=== PATIENT | male | born 1965 | race Caucasian/White ===

== ENCOUNTER 2017-02-02 23:38 | Emergency (ER) | payer BC, OTHER ==
[~2017-02-02] VITALS: Wt 64.0 kg
[~2017-02-02 23:38] MED LIST: ALPR1TAB7; CLON0.12; FLUOXETINA; GABA100C14; TRAM50TA2; VIC
--- NOTE | 2017-02-03 00:15 | ERA ---
ER Documentation Chief Complaint Date/Time DATE: 02/03/17 TIME: 00:15 Chief Complaint Left sided weakness HPI The patient is a 51-year-old male, presenting to the ER because of left facial and right-sided numbness and weakness that began about 10 PM. He had similar symptoms 3 days ago that lasted for approximately 2 hours and went away while he was waiting to the hospital emergency department. He denies headache, dizziness, dysarthria, dysphonia, neck pain, chest pain, abdominal pain, vomiting, dysuria, diarrhea. He smokes, denies drinking or using any illicit drug He was discharged from the hospital a few days ago and was treated for fungal sepsis Past medical history: Chronic low back pain Past surgical history: Right knee replacement ROS All systems reviewed and are negative except as per history of present illness. Medications Home Meds Reported Medications Trazodone Hcl* (Desyrel*) 100 Mg Tab, 100 MG PO QHS, #30 TAB 02/03/17 Tramadol Hcl* (Ultram*) 50 Mg Tablet, 50 MG PO Q6H Y for PAIN, TAB 02/03/17 Tiotropium [place]* (Spiriva*) 18 Mcg Cap.w.dev, 1 CAP INHALATION DAILY, #30 CAP 02/03/17 Prazosin Hcl* (Minipress*) 2 Mg Capsule, 2 MG PO HS, CAP 02/03/17 Hydrocodone/Acetaminophen ([place] 10-325 Tablet) 1 Each Tablet, 1 EACH PO Q4 for PAIN, TAB 02/03/17 Gabapentin* (Gabapentin*) 600 Mg Tablet, 600 MG PO WITH MEALS BEDTIME, #60 TAB TAKE 600MG QAM ; NOON; QPM AND 1200MG AT BEDTIME. 02/03/17 Fluoxetine Hcl* (Fluoxetine Hcl*) 20 Mg Capsule, 20 MG PO QAM, CAP 02/03/17 Docusate Sodium* (Docusate Sodium*) 100 Mg Capsule, 100 MG PO BID, #60 CAP 02/03/17 Atorvastatin Calcium* (Atorvastatin Calcium*) 20 Mg Tablet, 20 MG PO QHS, #30 TAB 02/03/17 Alprazolam* (Xanax*) 2 Mg Tablet, 2 MG PO QPM Y for ANXIETY, TAB 02/03/17 Albuterol Sulfate* (Proair HFA*) 8.5 Gm Hfa.aer.ad, 2 PUFF INH Q6, #1 INHALER 02/03/17 Discontinued Reported Medications Tramadol HCl (Tramadol HCl) 50 Mg Tablet 01/31/11 Clonazepam (Klonopin) 0.125 Mg/Tab Tab.rapdis 01/28/11 Alprazolam* (Alprazolam*) 1 Mg Tablet 01/28/11 [Fluoxetina] No Conflict Check 01/28/11 Gabapentin* (Gabapentin*) 100 Mg Capsule 01/28/11 Acetaminophen/Hydrocodone (Vicodin) 1 Tab Tab 01/28/11 Allergies Allergies: Coded Allergies: No Known Allergies (Unverified Allergy, Unknown, 02/03/17) PMhx/Soc History of Surgery: Yes (BACK FUSION 01/26/2011) Anesthesia Reaction: No Hx Neurological Disorder: No Hx Respiratory Disorders: No Hx Cardiac Disorders: No Hx Psychiatric Problems: No Hx Miscellaneous Medical Probl: No Hx Alcohol Use: No Hx Substance Use: No Hx Tobacco Use: Yes (DAILY) Physical Exam Vitals Vital Signs Date Time Temp Pulse Resp B/P Pulse Ox O2 Delivery O2 Flow Rate FiO2 02/03/17 04:20 98.2 69 18 118/65 100 Nasal Cannula 2.0 02/03/17 02:42 66 17 101/73 100 Nasal Cannula 2.0 02/03/17 01:30 60 16 95/75 100 Nasal Cannula 2.0 02/03/17 01:26 Nasal Cannula 2 02/03/17 00:22 98.6 63 18 105/76 99 Room Air 02/02/17 23:57 98.2 82 20 107/74 100 Physical Exam Const: No acute distress. Head: Atraumatic. Eyes: Normal Conjunctiva. ENT: Normal External Ears, Nose and Mouth. Neck: Full range of motion. No meningismus. Resp: Clear to auscultation bilaterally. Cardio: Regular rate and rhythm. Abd: Soft, non distended, normal bowel sounds, non tender. Skin: No petechiae or rashes. Back: No midline or flank tenderness. Ext: No cyanosis, or edema. Neur: Awake and alert. Right upper and right lower extremity are 5/5, left upper and left lower extremity are 4+ Psych: Normal Mood and Affect. Result Diagram: 02/03/17 0015 02/03/17 0015 Results 24 hrs Laboratory Tests Test 02/03/17 00:15 White Blood Count 11.710^3/ul Red Blood Count 3.7710^6/ul Hemoglobin 10.2g/dl Hematocrit 33.2% Mean Corpuscular Volume 88.1fl Mean Corpuscular Hemoglobin 27.1pg Mean Corpuscular Hemoglobin Concent 30.7g/dl Red Cell Distribution Width 14.2% Platelet Count 49807^3/UL Mean Platelet Volume 12.2fl Neutrophils % 64.2% Lymphocytes % 26.2% Monocytes % 5.9% Eosinophils % 2.8% Basophils % 0.3% Nucleated Red Blood Cells % 0.0/100WBC Neutrophils # 7.510^3/ul Lymphocytes # 3.110^3/ul Monocytes # 0.710^3/ul Eosinophils # 0.310^3/ul Basophils # 0.010^3/ul Nucleated Red Blood Cells # 0.010^3/ul Prothrombin Time 13.2Sec Prothrombin Time Ratio 1.0 INR International Normalized Ratio 1.00 Activated Partial Thromboplast Time 24.0Sec Sodium Level 140mmol/L Potassium Level 4.0mmol/L Chloride Level 106mmol/L Carbon Dioxide Level 23mmol/L Anion Gap 15 Blood Urea Nitrogen 12mg/dl Creatinine 0.90mg/dl Glucose Level 85mg/dl Hemoglobin A1c 5.0% Calcium Level 9.6mg/dl Troponin I < 0.012ng/ml Current Medications Medications (Trade) Dose Ordered Sig/Jaylin Route PRN Reason Start Time Stop Time Status Last Admin Dose Admin Aspirin (Aspirin) 325 mg ONCE ONCE PO 02/03/17 02:00 02/03/17 02:01 DC 02/03/17 01:48 Acetaminophen/ Hydrocodone Bitart ([place] (10/325)) 1 tab ONCE ONCE PO 02/03/17 02:30 02/03/17 02:31 DC 02/03/17 02:44 Procedures/[place] [id number] Radiology Main Line: [phone] DIAGNOSTIC IMAGING REPORT Patient: HANH KENDALL : 1965 Age: 51 Sex: M MR #: [id number] DOS: 02/03/17 0109 Ordering MD: BEATRIZ CASTELAN MD Location: E/R Room/Bed: PROCEDURE: CHEST - 1 VIEW CLINICAL INDICATION: 51-year-old male with change in mental status. TECHNIQUE: A single frontal AP upright portable view of the chest was performed. The images were reviewed on a PACS workstation. COMPARISON: None. FINDINGS: The cardiomediastinal silhouette is within normal limits. There is a shallow inspiration. There is minimal left basilar subsegmental atelectasis. There is no evidence for an infiltrate. There is no evidence for congestive heart failure. There is no evidence for pneumothorax. The osseous structures are intact. IMPRESSION: Shallow inspiration with minimal left basilar subsegmental atelectasis. .Daniel Montalvo MD, Date Time Electronically viewed and signed by .Daniel Montalvo MD, MD on 02/03/2017 01:53 .M/ CC: BEATRIZ CASTELAN MD [place] [id number] Radiology Main Line: [phone] DIAGNOSTIC IMAGING REPORT Patient: HANH KENDALL : 1965 Age: 51 Sex: M MR #: [id number] DOS: 02/03/17 0109 Ordering MD: BEATRIZ CASTELAN MD Location: E/R Room/Bed: PROCEDURE: CT Brain without contrast. CLINICAL INDICATION: Code stroke TECHNIQUE: A CT of the brain was performed utilizing axial imaging from the skull base through the vertex without IV contrast. Multiplanar reformatted images were made. Images were reviewed on a PACS workstation. The CTDIvol is 45.01 mGy and the DLP is 720.23 mGycm. One or more the following dose reduction techniques were utilized: Automated exposure control, adjustment of the mA and / or kV according to patient's size, or use of iterative reconstruction technique. COMPARISON: None FINDINGS: There is no intracranial hemorrhage, mass effect, or midline shift. No extra- axial fluid collection is seen. The ventricles and sulci are normal in size and configuration. The density of the brain is normal, and the richardson white matter differentiation appears well-preserved. The visualized paranasal sinuses and osseous structures are grossly unremarkable. IMPRESSION: No acute bleed. No acute major territory infarct seen. Critical result discussed with Dr. Castelan at 01:29 a.m. on 02/03/2017. RPTAT: HJES .Wei Jean MD, MD Date Time Electronically viewed and signed by .Wei Jean MD, MD on 02/03/2017 01:31 .S/ CC: BEATRIZ CASTELAN MD EKG: Read by emergency physician Rate/Rhythm: Normal Sinus Rhythm 68 beats/min QRS, ST, T-waves: No ST elevation, no T inversion Impression: Normal EKG MEDICAL MAKING DECISION: The patient is a 51-year-old male, presenting with acute left-sided weakness, consistent with acute stroke. Code stroke was activated immediately Consultation: I discussed the present with the stroke neurologist Dr Moise before and after he evaluated the patient at 1:30 am, who did not recommend TPA because the patient's symptoms are improving rapidly. The differential diagnoses considered include but are not limited to TIA, impending CVA, anxiety attack, panic attack, cervical radiculopathy, lumbar radiculopathy Departure Diagnosis: Primary Impression: Acute ischemic stroke Additional Impression: Anemia Condition: Stable Comments I discussed the findings with the patient. I discussed the patient with his physician Dr. Luis who was made aware of the lab, the treatment, the patient condition. The patient is admitted to telemetry at 3:40 AM The patient however changed his mind and signed out AGAINST MEDICAL ADVICE The patient signed out AGAINST MEDICAL ADVICE. Risks, benefits, alternatives were explained to the patient. Risks include but not limited to and permanent disability Critical Care: Time: 35 minutes excluding all billable procedures. Treatments/Evaluations: Close monitoring and treatment of unstable vital signs, cardiorespiratory, and neurologic status, while maintaining tight balance of fluid, respiratory, and cardiac interventions. BEATRIZ CASTELAN MD Feb 03, 2017 00:15
[2017-02-03] MEDS ORDERED: HYDR-902 PO (01:07)
[2017-02-03] MEDS ORDERED: PRAZ2CAP PO (01:07)
[2017-02-03] MEDS ORDERED: FLUO20CA22 PO (01:07)
[2017-02-03] MEDS ORDERED: ALBU8.5H3 INH (01:07)
[2017-02-03] MEDS ORDERED: DOCU-159 PO (01:07)
[2017-02-03] MEDS ORDERED: GABA-526 PO (01:07)
[2017-02-03] MEDS ORDERED: TRAZ100T15 PO (01:07)
[2017-02-03] MEDS ORDERED: TRAM-40 PO (01:07)
[2017-02-03] MEDS ORDERED: ATOR20TA38 PO (01:07)
[2017-02-03] MEDS ORDERED: ALPR2TAB PO (01:07)
[2017-02-03] MEDS ORDERED: TIOT18CA INHALATION (01:07)
[2017-02-03 01:21] LABS: ADD SCAN DIFF NO
[2017-02-03 01:23] LABS: BASOPHILS % 0.3 % (0.0-2.0); EOSINOPHILS # 0.3 10^3/ul (0.0-0.5); EOSINOPHILS % 2.8 % (0.0-7.0); HEMATOCRIT 33.2 % (42.0-52.0); HEMOGLOBIN 10.2 g/dl (14.0-18.0); LYMPHOCYTES # 3.1 10^3/ul (0.8-2.9); LYMPHOCYTES % 26.2 % (15.0-51.0); MEAN CORPUSCULAR HEMOGLOBIN 27.1 pg (29.0-33.0); MEAN CORPUSCULAR HGB CONC 30.7 g/dl (32.0-37.0); MEAN CORPUSCULAR VOLUME 88.1 fl (82.0-101.0); MEAN PLATELET VOLUME 12.2 fl (7.4-10.4); MONOCYTE # 0.7 10^3/ul (0.3-0.9); MONOCYTES % 5.9 % (0.0-11.0); NEUTROPHIL # 7.5 10^3/ul (1.6-7.5); NEUTROPHILS % 64.2 % (39.0-77.0); PLATELET COUNT 468 10^3/UL (140-415); RED BLOOD COUNT 3.77 10^6/ul (4.70-6.10); RED CELL DISTRIBUTION WIDTH 14.2 % (11.5-14.5); WHITE BLOOD COUNT 11.7 10^3/ul (4.8-10.8)
--- NOTE | 2017-02-03 01:31 | RADRPT ---
PROCEDURE: CT Brain without contrast. CLINICAL INDICATION: Code stroke TECHNIQUE: A CT of the brain was performed utilizing axial imaging from the skull base through the vertex without IV contrast. Multiplanar reformatted images were made. Images were reviewed on a [employer] workstation. The CTDIvol is 45.01 mGy and the DLP is 720.23 mGycm. One or more the following dose reduction techniques were utilized: Automated exposure control, adjus tment of the mA and / or kV according to patient's size, or use of iterative reconstruction techniqu e. COMPARISON: None FINDINGS: There is no intracranial hemorrhage, mass effect, or midline shift. No extra-axial fluid collection is seen. The ventricles and sulci are normal in size and configuration. The density of the brain is normal, and the richardson white matter differentiation appears well-preserved. The visualized paranasal sinuses and osseous structures are grossly unremarkable. IMPRESSION: No acute bleed. No acute major territory infarct seen. Critical result discussed with Dr. Santiago at 01:29 a.m. on 02/03/2017. RPTAT: HJES .Wei Jean MD, MD Date Time Electronically viewed and signed by .Wei Jean MD, MD on 02/03/2017 01:31 .S/
[2017-02-03 01:42] LABS: ANION GAP 15 (8-16); BLOOD UREA NITROGEN 12 mg/dl (7-20); CALCIUM 9.6 mg/dl (8.4-10.2); CARBON DIOXIDE 23 mmol/L (21-31); CHLORIDE 106 mmol/L (97-110); GLUCOSE 85 mg/dl (70-220); SODIUM 140 mmol/L (135-144)
--- NOTE | 2017-02-03 01:53 | RADRPT ---
PROCEDURE: CHEST - 1 VIEW CLINICAL INDICATION: 51-year-old male with change in mental status. TECHNIQUE: A single frontal AP upright portable view of the chest was performed. The images were reviewed on a PACS workstation. COMPARISON: None. FINDINGS: The cardiomediastinal silhouette is within normal limits. There is a shallow inspiration. There is minimal left basilar subsegmental atelectasis. There is no evidence for an infiltrate. There is n o evidence for congestive heart failure. There is no evidence for pneumothorax. The osseous structur es are intact. IMPRESSION: Shallow inspiration with minimal left basilar subsegmental atelectasis. .Daniel Montalvo MD, MD Date Time Electronically viewed and signed by .Daniel Montalvo MD, on 02/03/2017 01:53 .Ray
[2017-02-03 02:00] LABS: PROTIME 13.2 Sec (12.2-14.2)
[2017-02-03] MEDS ORDERED: ASPIRIN 325 MG TAB PO ONE (02:00)
[2017-02-03 02:07] LABS: TROPONIN-I < 0.012 ng/ml (0.00-0.12)
[2017-02-03] MEDS ORDERED: HYDROCODONE/APAP (10/325) TAB PO ONE (02:30)
[2017-02-03 04:20] VITALS: BP 118/65; PULSE 69; RESP 18; TEMP 98.2
== END 2017-02-03 04:28 | disposition left against medical advice (07) ==
LOC: E/R 23:38
DX: I63.9 Cerebral infarction, unspecified (principal); D64.9 Anemia, unspecified; F17.210 Nicotine dependence, cigarettes, uncomplicated; R20.0 Anesthesia of skin; R40.2142 Coma scale, eyes open, spontaneous, at arrival to emergency department; R40.2252 Coma scale, best verbal response, oriented, at arrival to emergency department; R40.2362 Coma scale, best motor response, obeys commands, at arrival to emergency department; Z96.651 Presence of right artificial knee joint
CPT/HCPCS: 36415; 70450; 71010; 80048; 83036; 84484; 85025; 85610; 85730; 93005; Z7502; Z7610

== ENCOUNTER → 2018-04-04 | Outpatient (CLI) | END | disposition home or self-care (01) ==

== ENCOUNTER 2018-04-26 02:48 | Inpatient (IN) | END 2018-04-26 18:17 | disposition home or self-care (01) | DRG 603 ==

== ENCOUNTER 2019-04-18 14:10 | Emergency (ER) | payer BC ==
[~2019-04-18] VITALS: Ht 170.2 cm; Wt 70.1 kg
[~2019-04-18 14:10] MED LIST changes: +ALBU8.5H8 INH; -ALPR1TAB7; +ALPR2TAB PO; +ATOR20TA38 PO; -CLON0.12; +DOCU-159 PO; +FLUO20CA22 PO; -FLUOXETINA; +GABA-526 PO; -GABA100C14; +HYDR-3980 PO; +PRAZ2CAP PO; +SULF1TAB31 PO; +TIOT18CA INHALATION; +TRAM50TA PO; -TRAM50TA2; +TRAZ-150 PO; -VIC
[2019-04-18 14:36] VITALS: Ht 170.2 cm; Wt 70.1 kg
[2019-04-18 15:51] VITALS: BP 93/68; PULSE 61; RESP 18
== END 2019-04-18 15:54 | disposition home or self-care (01) ==
LOC: E/R 14:10
DX: R60.0 Localized edema (principal); R60.9 Edema, unspecified; J45.909 Unspecified asthma, uncomplicated; Z96.659 Presence of unspecified artificial knee joint; Z87.891 Personal history of nicotine dependence
CPT/HCPCS: 99282